=== PATIENT | female | born 1955 | race Caucasian/White ===

== ENCOUNTER 2018-05-10 22:14 | Emergency (ER) | payer OTHER ==
[2018-05-10 22:29] VITALS: BP 110/74; PULSE 100; O2SAT 97
--- NOTE | 2018-05-10 22:46 | ERPHSYRPT ---
- History of Present Illness Time Seen by Provider: 05/10/18 22:30 Source: patient Exam Limitations: no limitations Patient Subjective Stated Complaint: pt reports severe dry eyes related to her sjogren's syndrome. reports she got two different eye drops from her PCP but they are not working. states "i cannot live like this" states "its like i have been in a sand storm" also reports yellow drainage from both eyes. pt reports decrease in vision. Triage Nursing Assessment: pt is aox3, pupils perrl, bilat eyes are red and mucous membranes appear dry. pt afebrile, radial pulses strong and equal. pt is photophobic. Physician History: 62 y/o female with history of Sjogren's Syndrome and Primary Biliary Cirrhosis comes to the ER with complaints of bilateral eye pain, blurry vision and dry eyes for the past 5 days. Pt states that she was prescribed Restasis and an antibiotic ointment with no relief. Pt states that the pain is unbearable and can not take the pain anymore. Timing/Duration: today, day(s) Location: bilateral eyes Severity: severe Apparent Injury: no Associated Symptoms: pain, decreased vision, blurred vision Visual Assistive Devices: None Chemical Exposure: No Trauma: No Welding Arc/Tanning Bed Exposure: No Allergies/Adverse Reactions: Latex, Natural Rubber Allergy (Mild, Verified 05/25/13 18:05) meperidine HCl [From Demerol] Allergy (Mild, Verified 05/25/13 18:05) can not urinate tetracycline [Tetracycline] Allergy (Unknown, Verified 05/25/13 18:05) ringing in ears Home Medications: Fluoxetine HCl 20 mg [Prozac 20 MG] 20 mg PO DAILY 05/16/13 [History] Omeprazole [Prilosec] 40 mg PO DAILY 05/16/13 [History] Hx Tetanus, Diphtheria Vaccination/Date Given: Yes Hx Influenza Vaccination/Date Given: No Hx Pneumococcal Vaccination/Date Given: No Immunizations Up to Date: Yes - Review of Systems Constitutional: No Fever, No Chills Eyes: Eye Pain, Eye Redness, Vision Changes Ears, Nose, & Throat: No Symptoms Respiratory: No Cough, No Dyspnea Cardiac: No Chest Pain, No Edema, No Syncope Abdominal/Gastrointestinal: No Abdominal Pain, No Nausea, No Vomiting, No Diarrhea Genitourinary Symptoms: No Dysuria Musculoskeletal: No Back Pain, No Neck Pain Skin: No Rash Neurological: No Dizziness, No Focal Weakness, No Sensory Changes Psychological: No Symptoms Endocrine: No Symptoms All Other Systems: Reviewed and Negative - Past Medical History Pertinent Past Medical History: Yes Neurological History: No Pertinent History ENT History: No Pertinent History Cardiac History: No Pertinent History Respiratory History: No Pertinent History Endocrine Medical History: Hypoglycemia Musculoskeletal History: No Pertinent History GI Medical History: Other History: No Pertinent History Psycho-Social History: Anxiety Female Reproductive Disorders: No Pertinent History Other Medical History: ESOPHGITIS, stage 3 primary billiary cirrossis, Sjogren' s Syndrome - Past Surgical History Past Surgical History: Yes Neuro Surgical History: No Pertinent History Cardiac: No Pertinent History Respiratory: No Pertinent History Gastrointestinal: Cholecystectomy Genitourinary: No Pertinent History Musculoskeletal: No Pertinent History Female Surgical History: Other Other Surgical History: BREAST REDUCTION - Social History Smoking Status: Never smoker How long have you smoked: 30 yrs Exposure to second hand smoke: No Drug Use: none Patient Lives Alone: No - Female History Hx Now: No - Nursing Vital Signs Nursing Vital Signs: Initial Vital Signs Temperature 98.6 F 05/10/18 22:15 Pulse Rate 98 H 05/10/18 22:15 Respiratory Rate 20 05/10/18 22:15 Blood Pressure 110/74 05/10/18 22:15 O2 Sat by Pulse Oximetry 98 05/10/18 22:15 Pain Scale Pain Intensity 8 - Physical Exam General Appearance: mild distress Vision Acuity Degree Evaluation Phase: Corrected Vision Acuity Right Eye: 20/40 Vision Acuity Left Eye: 20/40 Eye Exam: bilateral eye: erythema, exudate, vision changes Ears, Nose, Throat Exam: normal ENT inspection Neck Exam: normal inspection, non-tender Respiratory Exam: normal breath sounds, lungs clear Cardiovascular Exam: regular rate/rhythm, normal heart sounds Gastrointestinal Exam: soft, normal bowel sounds Extremity Exam: normal inspection, normal range of motion Neurologic: alert, oriented x 3, cooperative, 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 Skin Exam: normal color, warm, dry SpO2: 97 Oxygen Delivery: Room Air - Course Nursing assessment & vital signs reviewed: Yes Ordered Tests: Medication Summary Generic Name Dose Route Start Last Admin Trade Name Freq PRN Reason Stop Dose Admin Artificial Tears 15 ml 05/11/18 23:05 05/10/18 23:34 Artificial Tears 15 Ml OP 05/11/18 23:06 15 ml ONCE ONE Administration Discontinued Medications Generic Name Dose Route Start Last Admin Trade Name Malcolm PRN Reason Stop Dose Admin Artificial Tears Confirm 05/10/18 23:27 Artificial Tears 15 Ml Administered 05/10/18 23:28 Dose 15 ml OP .STK-MED ONE Cyclopentolate HCl 2 ml 05/10/18 23:04 05/10/18 23:29 Cyclogyl 1% Eye Drops OP 05/10/18 23:05 2 ml STAT ONE Administration Cyclopentolate HCl Confirm 05/10/18 23:18 Cyclogyl 1% Eye Drops Administered 05/10/18 23:19 Dose 2 ml OP .STK-MED ONE - Progress Progress: improved Progress Note: 05/11/18 00:[address] Resendiz, opthalmology and he recommends that the patient use cyclophentolate and artificial tears. Pt will F/U with her opthalmologist in the morning. - Departure Time of Disposition: 00:05 Departure Disposition: Home Clinical Impression: Dry eyes Condition: Stable Critical Care Time: No Referrals: DANILO MCKINNEY [Primary Care Provider] - Instructions: Dry Eye Additional Instructions: Follow up with your opthalmologist in the morning. Take the cyclophenotolate 3 times daily and use the artificial tears every hour during waking hours. Prescriptions: Cyclopentolate HCl [Cyclogyl] 2 ml OP TID #1 drops Dextran 70/Hypromellose [Artificial Tears Drops] 15 ml OP PER HOUR #1 drops
[2018-05-10] MEDS ORDERED: Cyclogyl 1% EYE DROPS OP ONE ×2 (23:04→23:18)
[2018-05-10] MEDS ORDERED: Artificial Tears 15 ML OP ONE (23:27)
[2018-05-11] MEDS ORDERED: Artificial Tears 15 ML OP ONE (23:05)
== END 2018-05-11 00:13 | disposition home or self-care (01) ==
LOC: ED 22:14
DX: H57.8 Other specified disorders of eye and adnexa (principal); H57.13 Ocular pain, bilateral
CPT/HCPCS: 99283; A9270-GY

== ENCOUNTER 2018-10-01 13:30 | Emergency (ER) | payer MEDICARE, OTHER ==
[2018-10-01] MEDS ORDERED: Sodium Chloride 0.9% 1000 ML 1,000 ML IV STA (13:59)
--- NOTE | 2018-10-01 14:05 | ERPHSYRPT ---
- History of Present Illness Time Seen by Provider: 10/01/18 13:54 Historian: patient Exam Limitations: no limitations Patient Subjective Stated Complaint: has primary billiary colongitis and thinks that her liver has flipped over Triage Nursing Assessment: Pt reports that she has primary billiary colongitis and thinks that her liver has flipped over, she was having some sharp pains and then she saw something "flip" over inside her, vitals wnl, pain with palpatation , denies pain otherwise, no other issues at this time Physician History: 62-year-old white female arrives with complaint of right upper quadrant pain she states that this morning she felt pain in the right upper quadrant noted distention of her right upper quadrant she states she wonders if her liver flipped over. Patient states she has some mild right upper quadrant tenderness at this time she denies any nausea vomiting. She does state that she has been having bilateral flank pain for last few days right worse than left. Past medical history includes hypoglycemia, anxiety, esophagitis, stage III biliary cirrhosis, sjogren's syndrome Past surgical history includes cholecystectomy and breast reduction.. Social history patient denies tobacco alcohol or illicit drug use. Timing/Duration: today Activities at Onset: none Quality: cramping Abdominal Pain Onset Location: RUQ, flank (right flank) Pain Radiation: RUQ, flank (right flank) Severity of Pain-Max: moderate Severity of Pain-Current: mild Modifying Factors: Improves With: nothing Associated Symptoms: back (right bilateral flank pain for several days), No chest pain, No diaphoresis, No diarrhea, No fever/chills, No fatigue, No headache, No heartburn, No loss of appetite, No nausea, No neck pain, No shortness of breath, No syncope, No vomiting, No weakness Previous symptoms: no prior history Allergies/Adverse Reactions: Latex, Natural Rubber Allergy (Mild, Verified 10/01/18 13:50) meperidine HCl [From Demerol] Allergy (Mild, Verified 10/01/18 13:50) can not urinate tetracycline [Tetracycline] Allergy (Unknown, Verified 10/01/18 13:50) ringing in ears Home Medications: Omeprazole [Prilosec] 40 mg PO BID 05/16/13 [History] Dicyclomine HCl 20 mg [Bentyl 20 mg] 10 mg PO DAILY 10/01/18 [History] Hydroxyzine HCl 25 mg [Atarax 25 mg] 25 mg PO Q6H PRN 10/01/18 [History] Levothyroxine Sodium 25 Mcg [Synthroid 25 Mcg] 25 mcg PO DAILY 10/01/18 [ History] Ondansetron ODT 4 MG [Zofran Odt 4 mg] 8 mg PO STAT 10/01/18 [History] Ursodiol 300 mg [Actigall 300MG] 3 cap PO DAILY 10/01/18 [History] Venlafaxine HCl [Venlafaxine HCl ER] 375 mg PO DAILY 10/01/18 [History] Hx Tetanus, Diphtheria Vaccination/Date Given: Yes Hx Influenza Vaccination/Date Given: No Hx Pneumococcal Vaccination/Date Given: No - Review of Systems Constitutional: No Fever, No Chills Eyes: No Symptoms Ears, Nose, & Throat: No Symptoms Respiratory: No Cough, No Dyspnea Cardiac: No Chest Pain, No Edema, No Syncope Abdominal/Gastrointestinal: Abdominal Pain (right upper quadrant pain), No Nausea, No Vomiting, No Diarrhea, No Constipation, No Hematemesis, No Hematochezia, No Melena, No Dysphagia, No Appetite Changes Genitourinary Symptoms: Flank Pain (bilateral flank pain for few days, right greater than left), No Dysuria, No Frequency, No Hematuria, No Hesitancy, No Incontinence, No Urgency, No Urinary Retention Musculoskeletal: Back Pain, No Neck Pain Skin: No Rash Neurological: No Dizziness, No Focal Weakness, No Sensory Changes Psychological: No Symptoms Endocrine: No Symptoms All Other Systems: Reviewed and Negative - Past Medical History Pertinent Past Medical History: Yes Neurological History: No Pertinent History ENT History: No Pertinent History Cardiac History: No Pertinent History Respiratory History: No Pertinent History Endocrine Medical History: Hypoglycemia Musculoskeletal History: No Pertinent History GI Medical History: Other History: No Pertinent History Psycho-Social History: Anxiety Female Reproductive Disorders: No Pertinent History Other Medical History: ESOPHGITIS, stage 3 primary billiary cirrossis, Sjogren' s Syndrome, raynauds - Past Surgical History Past Surgical History: Yes Neuro Surgical History: No Pertinent History Cardiac: No Pertinent History Respiratory: No Pertinent History Gastrointestinal: Cholecystectomy Genitourinary: No Pertinent History Musculoskeletal: No Pertinent History Female Surgical History: Other Other Surgical History: BREAST REDUCTION - Social History Smoking Status: Former smoker How long have you smoked: 30 yrs Exposure to second hand smoke: No Drug Use: none Patient Lives Alone: No - Female History Hx Now: No - Nursing Vital Signs Nursing Vital Signs: Initial Vital Signs Temperature 98.5 F 10/01/18 13:39 Pulse Rate 98 H 10/01/18 13:39 Blood Pressure 124/88 10/01/18 13:39 O2 Sat by Pulse Oximetry 97 10/01/18 13:39 Pain Scale Pain Intensity 0 - Physical Exam General Appearance: mild distress Eye Exam: PERRL/EOMI, eyes nml inspection Ears, Nose, Throat Exam: normal ENT inspection, pharynx normal, moist mucous membranes Neck Exam: normal inspection, non-tender, supple, full range of motion Respiratory Exam: normal breath sounds, lungs clear, No respiratory distress Cardiovascular Exam: regular rate/rhythm, normal heart sounds Gastrointestinal/Abdomen Exam: soft, tenderness (right upper quadrant tenderness ), No mass Back Exam: normal inspection, normal range of motion, No CVA tenderness, No vertebral tenderness Extremity Exam: normal inspection, normal range of motion, pelvis stable Neurologic Exam: alert, oriented x 3, cooperative, 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 tested, normal mood/affect, nml cerebellar function, sensation nml, No motor deficits Skin Exam: normal color, warm, dry SpO2 Interpretation: normal (97%\\) SpO2: 97 Oxygen Delivery: Room Air - Course Nursing assessment & vital signs reviewed: Yes - Radiology Exams Abdomen X-ray Interpretation: Interpreted by me, Negative (non obstructive bowel gas pattern already .no free air lungs no acute disease process noted), No Fracture Ordered Tests: Active Orders 24 hr Category Date Time Status IV Insertion STAT Care 10/01/18 13:59 Active OBSTR/ACUTE ABDOMEN SERIES Stat Exams 10/01/18 15:17 Completed AMYLASE Stat Lab 10/01/18 14:10 Completed CBC W DIFF Stat Lab 10/01/18 14:10 Completed CMP Stat Lab 10/01/18 14:10 Completed LIPASE Stat Lab 10/01/18 14:10 Completed UA W/RFX UR CULTURE Stat Lab 10/01/18 Completed Medication Summary Discontinued Medications Generic Name Dose Route Start Last Admin Trade Name Freq PRN Reason Stop Dose Admin Sodium Chloride 1,000 mls @ 999 mls/hr 10/01/18 13:59 10/01/18 14:17 Sodium Chloride 0.9% 1000 Ml IV 10/01/18 14:59 999 mls/hr .Q1H1M STA Administration Sodium Chloride Confirm 10/01/18 14:15 Sodium Chloride 0.9% 1000 Ml Administered 10/01/18 14:16 Dose 1,000 mls @ ud .ROUTE .STK-MED ONE Lab/Rad Data: Laboratory Result Diagrams 10/01/18 14:10 10/01/18 14:10 Laboratory Results 10/01/18 10/01/18 10/01/18 Range/Units Unknown 14:10 14:10 WBC 4.9 (4.0-10.5) K/mm3 RBC 4.66 (4.1-5.4) M/mm3 Hgb 14.3 (12.0-16.0) gm/dl Hct 43.6 (35-47) % MCV 93.6 (78-100) fl MCH 30.7 (26-32) pg MCHC 32.8 (32-36) g/dl RDW 14.6 H (11.5-14.0) % Plt Count 223 (150-450) K/mm3 MPV 9.9 H (6-9.5) fl Gran % 66.0 (36.0-66.0) % Eos # (Auto) 0.01 (0-0.5) Absolute Lymphs (auto) 1.15 (1.0-4.6) Absolute Monos (auto) 0.50 (0.0-1.3) Lymphocytes % 23.4 L (24.0-44.0) % Monocytes % 10.2 (0.0-12.0) % Eosinophils % 0.2 (0.00-5.0) % Basophils % 0.2 (0.0-0.4) % Absolute Granulocytes 3.25 (1.4-6.9) Basophils # 0.01 (0-0.4) Sodium 138 (137-145) mmol/L Potassium 3.5 (3.5-5.1) mmol/L Chloride 101 (98-107) mmol/L Carbon Dioxide 27 (22-30) mmol/L Anion Gap 13.3 (5-15) MEQ/L BUN 15 (7-17) mg/dL Creatinine 0.86 (0.52-1.04) mg/dL Estimated GFR > 60.0 ML/MIN Glucose 111 H (74-106) mg/dL Calcium 9.1 (8.4-10.2) mg/dL Total Bilirubin 0.40 (0.2-1.3) mg/dL AST 34 (14-36) U/L ALT 21 (0-35) U/L Alkaline Phosphatase 178 H (38-126) U/L Serum Total Protein 7.7 (6.3-8.2) g/dL Albumin 4.3 (3.5-5.0) g/dL Amylase 98 (30-110) U/L Lipase 150 (23-300) U/L Urine Color STRAW (YELLOW) Urine Appearance CLEAR (CLEAR) Urine pH 6.0 (5-6) Ur Specific [place] 1.005 (1.005-1.025) Urine Protein NEGATIVE (Negative) Urine Ketones NEGATIVE (NEGATIVE) Urine Blood NEGATIVE (0-5) [place]/ul Urine Nitrite NEGATIVE (NEGATIVE) Urine Bilirubin NEGATIVE (NEGATIVE) Urine Urobilinogen NEGATIVE (0-1) mg/dL Ur Leukocyte Esterase NEGATIVE (NEGATIVE) Urine WBC (Auto) NONE (0-5) /HPF Urine RBC (Auto) NONE (0-2) /HPF U Epithel Cells (Auto) NONE (FEW) /HPF Urine Bacteria (Auto) NONE (NEGATIVE) /HPF Urine Mucus (Auto) SLIGHT (NEGATIVE) /HPF Urine Culture Reflexed NO (NO) Urine Glucose NEGATIVE (NEGATIVE) mg/dL - Progress Progress: improved Progress Note: 10/01/18 16:50 This is a 62-year-old white female history of hypoglycemia, anxiety, esophagitis , stage III biliary cirrhosis, Sogren's syndrome, she arrives with complaint of right upper quadrant abdominal pain which began this morning she states that "I feel like my liver flipped over Patient did not have any nausea she states she has had pain in bilateral flanks for a couple of days right greater than left she denies any dysuria hematuria melena hematochezia. Patient appears to be uncomfortable on arrival she has some slight right upper quadrant tenderness bowel sounds are positive there is no rebound on examination of the abdomen there are no masses. Patient's urine is within normal limits chemistry is essentially normal with the suction of alkaline phosphatase at 178 . Total bilirubin is 0.4 amylase is 98 lipase 150 AST is 30 4SB GPT is 21 the remainder of the chemistry is normal with the exception of a glucose of 111 CBC White blood cell 4.9 hemoglobin 14.3 hematocrit 43.6 platelets are At 223 Patient's acute abdominal series Nonspecific abdominal bowel series, no obstruction no free air chest x-ray no acute disease process noted. Patient is given IV normal saline. She is in no acute distress at this time she states she feels "swollen in the right upper quadrant but is nontender when I palpate her abdomen. Patient does not want any pain medications I discussed the case with Dr. Baker. Will discharge patient's clear fluids 24-48 hours if abdominal pain follow-up with Dr. Baker if symptoms are getting worse or no better tomorrow. She is return for acute distress or for severe symptoms. - Departure Time of Disposition: 16:55 Departure Disposition: Home Clinical Impression: Right upper quadrant abdominal pain, history of biliary cirrhosis Condition: Fair Critical Care Time: No Referrals: DANILO BAKER [Primary Care Provider] - Additional Instructions: Return home. Plenty of fluids. Clear fluids only 24-48 hours if abdominal pain. Follow-up with Dr. Baker tomorrow if symptoms no better. Or if symptoms persist longer than 48 hours. Return for acute distress or for severe symptoms
[2018-10-01] MEDS ORDERED: Sodium Chloride 0.9% 1000 ML 1,000 ML ONE (14:15)
[2018-10-01 14:37] LABS: BASOPHIL % 0.2 % (0.0-0.4); Basophil (Absolute #) 0.01 (0-0.4); Eosinophil % 0.2 % (0.00-5.0); Eosinophil (Absolute #) 0.01 (0-0.5); Granulocyte Absolute (ANC) 3.25 (1.4-6.9); Hematocrit 43.6 % (35-47); Hemoglobin 14.3 gm/dl (12.0-16.0); Lymphocyte (Absolute #) 1.15 (1.0-4.6); Lymphocytes % 23.4 % (24.0-44.0); Mean Cell Volume 93.6 fl (78-100); Mean Corpuscular Hemoglobin 30.7 pg (26-32); Mean Corpuscular Hgb Concent. 32.8 g/dl (32-36); Mean Platelet Volume 9.9 fl (6-9.5); Monocytes % 10.2 % (0.0-12.0); Platelet Count 223 K/mm3 (150-450); Red Blood Count 4.66 M/mm3 (4.1-5.4); Red Cell Distribution Width 14.6 % (11.5-14.0); White Blood Count 4.9 K/mm3 (4.0-10.5)
[2018-10-01 15:06] LABS: ALBUMIN 4.3 g/dL (3.5-5.0); ALKALINE PHOSPHATASE 178 U/L (38-126); AMYLASE 98 U/L (30-110); ANION GAP 13.3 MEQ/L (5-15); BLOOD UREA NITROGEN 15 mg/dL (7-17); CHLORIDE 101 mmol/L (98-107); Calcium 9.1 mg/dL (8.4-10.2); Carbon Dioxide 27 mmol/L (22-30); Creatinine 1 0.86 mg/dL (0.52-1.04); Glucose 111 mg/dL (74-106); LIPASE 150 U/L (23-300); Potassium 3.5 mmol/L (3.5-5.1); SGOT/AST 34 U/L (14-36); SGPT/ALT 21 U/L (0-35); SODIUM 138 mmol/L (137-145); Total Protein 7.7 g/dL (6.3-8.2)
[2018-10-01 15:39] LABS: Appearance CLEAR (CLEAR); Bilirubin NEGATIVE (NEGATIVE); Blood NEGATIVE Ery/ul (0-5); Glucose NEGATIVE (NEGATIVE); Ketones NEGATIVE (NEGATIVE); Leukocyte Esterase NEGATIVE (NEGATIVE); Nitrite NEGATIVE (NEGATIVE); Protein,Urine Dip NEGATIVE (Negative); Specific Gravity 1.005 (1.005-1.025); Urobilinogen NEGATIVE mg/dL (0-1)
--- NOTE | 2018-10-01 16:29 | XRAY ---
Indication: Right upper quadrant abdominal pain. Comparison: May 25, 2013. 2 views of the abdomen now demonstrates mild diffuse scattered colonic fecal debris and cholecystectomy clips. Stable pelvic phleboliths. Solid organs unremarkable. Osseous structures intact with stable mild degenerative spondylosis and minimal double curvature scoliosis. Single PA chest demonstrates normal heart and lungs again with left hilar and left apical calcified granulomas. Bony thorax intact with mild degenerative changes. Impression: 1. Mild fecal stasis without obstruction. 2. Nonacute one view chest with chronic features.
[2018-10-01 18:03] VITALS: BP 124/87; PULSE 74; O2SAT 98
== END 2018-10-01 18:02 | disposition home or self-care (01) ==
LOC: ED 13:30
DX: R10.11 Right upper quadrant pain (principal); Z79.899 Other long term (current) drug therapy; Z87.19 Personal history of other diseases of the digestive system
CPT/HCPCS: 36000; 36415; 74022; 80053; 81001; 82150; 83690; 85025; 96360; 99284

== ENCOUNTER 2023-11-24 15:16 | Emergency (ER) | payer MEDICARE ==
--- NOTE | 2023-11-24 15:24 | ERPHSYRPT ---
- History of Present Illness Time Seen by Provider: 11/24/23 15:24 Historian: patient Exam Limitations: no limitations Physician History: This is a 68-year-old white female patient of Dr. Barcenas who presents to the emergency department with left lower quad abdominal pain that began at 3:00 this morning and has worsened throughout the day. Patient has a history of di verticulitis in the past. This pain is worse. There is also no passage of bloody stools as there was when she had an episode of diverticulitis. Patient did lose her son last week. Patient has had nausea but no vomiting. Patient has a history of gastroesophageal reflux disease, anxiety, hypothyroidism, stage III primary biliary cirrhosis, Sjogren's syndrome, Raynaud's and hypoglycemia. Patient denies chest pain. Patient denies shortness of breath. Patient does not want any pain medicine at this time. Activities at Onset: none ( She does not want any antiemetic medication at this time.) Quality: sharpness Abdominal Pain Onset Location: LLQ Pain Radiation: no radiation Severity of Pain-Max: moderate Severity of Pain-Current: moderate Associated Symptoms: loss of appetite, No diarrhea, No fever/chills, No yen rtness of breath Previous symptoms: no prior history Allergies/Adverse Reactions: Latex, Natural Rubber Allergy (Mild, Verified 11/24/23 15:54) Rash meperidine HCl [From Demerol] Allergy (Mild, Verified 11/24/23 15:54) can not urinate tetracycline [Tetracycline] Allergy (Unknown, Verified 11/24/23 15:54) ringing in ears lifitegrast [From Xiidra] Allergy (Verified 11/24/23 15:54) Home Medications: Omeprazole [Prilosec] 40 mg PO BID 05/16/13 [History] Hydroxyzine HCl 25 mg [Atarax 25 mg] 50 mg PO Q6H PRN 10/01/18 [History] Levothyroxine Sodium 25 Mcg [Synthroid 25 Mcg] 50 mcg PO DAILY 10/01/18 [History] Ursodiol 300 mg [Actigall 300MG] 500 mg PO BID 10/01/18 [History] Calcium Carbonate/Vitamin D3 [Caltrate 600 + D Tablet] 1 each PO BID 07/26/21 [History] Obeticholic Acid [Ocaliva] 10 mg PO DAILY 07/26/21 [History] Carboxymethylcellulose Sodium [Refresh Plus] 1 each OP UD 11/24/23 [History] Duloxetine HCl [Cymbalta] 60 mg PO DAILY 11/24/23 [History] Hx Tetanus, Diphtheria Vaccination/Date Given: Yes Hx Influenza Vaccination/Date Given: No Hx Pneumococcal Vaccination/Date Given: No Travel Risk - International Travel Have you traveled outside of the country in past 3 weeks: No - Coronavirus Screening Are you exhibiting any of the following symptoms?: No Close contact with a COVID-19 positive Pt in past 14-21 Days: No - Review of Systems Constitutional: No Symptoms Eyes: No Symptoms Ears, Nose, & Throat: No Symptoms Respiratory: No Symptoms Cardiac: No Symptoms Abdominal/Gastrointestinal: Abdominal Pain Genitourinary Symptoms: No Symptoms (Left lower quadrant) Musculoskeletal: No Symptoms Skin: No Symptoms Neurological: No Symptoms Psychological: No Symptoms Endocrine: No Symptoms Hematologic/Lymphatic: No Symptoms Immunological/Allergic: No Symptoms All Other Systems: Reviewed and Negative - Past Medical History Pertinent Past Medical History: Yes Neurological History: No Pertinent History ENT History: No Pertinent History Cardiac History: No Pertinent History Respiratory History: No Pertinent History Endocrine Medical History: Hypoglycemia Musculoskeletal History: No Pertinent History GI Medical History: Other History: No Pertinent History Psycho-Social History: Anxiety Female Reproductive Disorders: No Pertinent History Other Medical History: ESOPHGITIS, stage 3 primary billiary cirrossis, Sjogren's Syndrome, raynauds - Past Surgical History Past Surgical History: Yes Neuro Surgical History: No Pertinent History Cardiac: No Pertinent History Respiratory: No Pertinent History Gastrointestinal: Cholecystectomy Genitourinary: No Pertinent History Musculoskeletal: No Pertinent History Female Surgical History: Other Other Surgical History: BREAST REDUCTION - Social History Smoking Status: Former smoker How long have you smoked: 30 yrs Exposure to second hand smoke: No Drug Use: none Patient Lives Alone: No - Nursing Vital Signs Nursing Vital Signs: Initial Vital Signs Temperature 97.9 F 11/24/23 15:41 Pulse Rate 76 11/24/23 15:41 Blood Pressure 130/78 11/24/23 15:41 O2 Sat by Pulse Oximetry 98 11/24/23 15:41 Pain Scale Pain Intensity 10 - Physical Exam General Appearance: no apparent distress, alert, anxiety Eye Exam: PERRL/EOMI, eyes nml inspection Ears, Nose, Throat Exam: normal ENT inspection, moist mucous membranes Neck Exam: normal inspection, non-tender, supple, full range of motion Respiratory Exam: normal breath sounds, lungs clear, airway intact, No chest tenderness, No respiratory distress Cardiovascular Exam: regular rate/rhythm, normal heart sounds, normal peripheral pulses Gastrointestinal/Abdomen Exam: soft, normal bowel sounds, tenderness (Left lower quadrant), guarding (Left lower quadrant to palpation), rebound (Left lower quadrant on palpation) Pelvic Exam: not done Rectal Exam: not done Back Exam: normal inspection, normal range of motion, No CVA tenderness, No vertebral tenderness Extremity Exam: normal inspection, normal range of motion, pelvis stable Neurologic Exam: alert, oriented x 3, cooperative, grab hooker II-XII nml as tested, normal mood/affect, nml cerebellar function, nml station & gait, sensation nml Skin Exam: normal color, warm, dry Lymphatic Exam: No adenopathy SpO2 Interpretation: normal O2 Delivery: Room Air - Course Nursing assessment & vital signs reviewed: Yes Ordered Tests: Active Orders 24 hr Category Date Time Status IV Insertion STAT Care 11/24/23 16:04 Active ABDOMEN AND PELVIS W/0 CONTRAS [CT] Stat Exams 11/24/23 16:05 Taken AMYLASE Stat Lab 11/24/23 16:30 Completed CBC W DIFF Stat Lab 11/24/23 16:30 Completed CMP Stat Lab 11/24/23 16:30 Completed LIPASE Stat Lab 11/24/23 16:30 Completed UA W/RFX UR CULTURE Stat Lab 11/24/23 16:05 Ordered Medication Summary Discontinued Medications Generic Name Dose Route Start Last Admin Trade Name Malcolm PRN Reason Stop Dose Admin Sodium Chloride 1,000 mls @ 999 mls/hr 11/24/23 16:04 11/24/23 16:44 Sodium Chloride 0.9% 1000 Ml IV 11/24/23 17:04 999 mls/hr .Q1H1M STA Administration Sodium Chloride Confirm 11/24/23 16:43 Sodium Chloride 0.9% 1000 Ml Administered 11/24/23 16:44 Dose 1,000 mls @ ud .ROUTE .K-MED ONE Lab/Rad Data: Laboratory Result Diagrams 11/24/23 16:30 11/24/23 16:30 Laboratory Results 11/24/23 11/24/23 Range/Units 16:30 16:30 WBC 10.7 H (4.0-10.5) x10^3/uL RBC 4.22 (4.1-5.4) x10^6/uL Hgb 13.1 (12.0-16.0) g/dL Hct 40.5 (35-47) % MCV 96.0 (78-100) fL MCH 31.0 (26-32) pg MCHC 32.3 (32-36) g/dL RDW 13.2 (11.5-14.0) % Plt Count 248 (150-450) x10^3/uL MPV 9.6 (7.5-11.0) fL Gran % 76.9 H (36.0-66.0) % Immature Gran % (Auto) 0.2 (0.00-0.4) % Nucleat RBC Rel Count 0.0 (0.00-0.1) % Eos # (Auto) 0 (0-0.5) x10^3/uL Immature Gran # (Auto) 0.02 (0.00-0.03) x10^3u/L Absolute Lymphs (auto) 1.53 (1.0-4.6) x10^3/uL Absolute Monos (auto) 0.91 (0.0-1.3) x10^3/uL Absolute Nucleated RBC 0.00 (0.00-0.01) x10^3u/L Lymphocytes % 14.3 L (24.0-44.0) % Monocytes % 8.5 (0.0-12.0) % Eosinophils % 0.0 (0.00-5.0) % Basophils % 0.1 (0.0-0.4) % Absolute Granulocytes 8.20 H (1.4-6.9) x10^3/uL Basophils # 0.01 (0-0.4) x10^3/uL Sodium 135 L (137-145) mmol/L Potassium 3.5 (3.5-5.1) mmol/L Chloride 101 (98-107) mmol/L Carbon Dioxide 26 (22-30) mmol/L Anion Gap 11.5 (5-15) MEQ/L BUN 32 H (7-17) mg/dL Creatinine 0.91 (0.52-1.04) mg/dL Estimated GFR 68.7 ML/MIN Glucose 110 H (74-106) mg/dL Calcium 9.1 (8.4-10.2) mg/dL Total Bilirubin 1.70 H (0.2-1.3) mg/dL AST 32 (14-36) U/L ALT 17 (0-35) U/L Alkaline Phosphatase 129 H (38-126) U/L Serum Total Protein 7.8 (6.3-8.2) g/dL Albumin 4.3 (3.5-5.0) g/dL Amylase 63 (30-110) U/L Lipase 48 (23-300) U/L - Progress Progress: improved, pain not gone completely, re-examined Progress Note: 11/24/23 16:30 This patient's medical issue is 1 of moderate complexity. The level of complexity in the workup performed is based on review of the patient's past medical history, review the patient's medication list, review the patient's drug allergy list, history present illness and physical findings on examination. The workup in this patient includes placement of intravenous line, infusion of normal saline solution, CBC, CMP, amylase, lipase, urinalysis and CT scan of the abdomen pelvis without contrast. 11/24/23 18:03 Interpreted the patient's laboratory data. Patient has very mildly elevated white count. No other laboratory data results that suggest acute or emergent findings. CT scan of the abdomen pelvis was interpreted by the radiologist and I reviewed the impression. There is a new finding of mild diverticulitis of the descending colon without complications. Counseled pt/family regarding: lab results, diagnosis, need for follow-up, rad results Medical Desision Making - Independent Historian Additional History obtained from: Family - Diagnostic Testing Diagnostic test were ordered, analyzed, and reviewed by me: Yes Radiological Interpretation: Reviewed by me, Teleradiologist Report - Risk of complications The pt has a mod risk of morbidity or mortality based on: Need for prescription drug management - Departure Departure Disposition: Home Clinical Impression: Diverticulitis of descending colon Condition: Stable Critical Care Time: No Referrals: MADHURI BARCENAS DO [Primary Care Provider] - Follow up/PCP as directed Additional Instructions: Drink plenty of clear liquids. Use Tylenol for pain control. Take your antibiotics as prescribed. Prescriptions: Ciprofloxacin [Cipro 500 MG] 500 mg PO BID #14 tablet Metronidazole 500 mg [Flagyl 500 MG] 500 mg PO TID #21 tablet
[2023-11-24 15:53] VITALS: TEMP 97.9
[2023-11-24] MEDS ORDERED: Sodium Chloride 0.9% 1000 ML 1,000 ML IV STA (16:04)
[2023-11-24] MEDS ORDERED: Sodium Chloride 0.9% 1000 ML 1,000 ML ONE (16:43)
[2023-11-24 16:53] LABS: BASOPHIL % 0.1 % (0.0-0.4); Basophil (Absolute #) 0.01 x10^3/uL (0-0.4); Eosinophil (Absolute #) 0 x10^3/uL (0-0.5); Hematocrit 40.5 % (35-47); Hemoglobin 13.1 g/dL (12.0-16.0); IMMATURE GRAN # 0.02 x10^3u/L (0.00-0.03); IMMATURE GRAN % 0.2 % (0.00-0.4); Lymphocyte (Absolute #) 1.53 x10^3/uL (1.0-4.6); Lymphocytes % 14.3 % (24.0-44.0); Mean Corpuscular Hgb Concent. 32.3 g/dL (32-36); Mean Platelet Volume 9.6 fL (7.5-11.0); Monocyte (Absolute #) 0.91 x10^3/uL (0.0-1.3); Monocytes % 8.5 % (0.0-12.0); Neutrophil % 76.9 % (36.0-66.0); Platelet Count 248 x10^3/uL (150-450); Red Blood Count 4.22 x10^6/uL (4.1-5.4); Red Cell Distribution Width 13.2 % (11.5-14.0); White Blood Count 10.7 x10^3/uL (4.0-10.5)
[2023-11-24 17:07] LABS: ALBUMIN 4.3 g/dL (3.5-5.0); ANION GAP 11.5 MEQ/L (5-15); BILIRUBIN,TOTAL 1.7 mg/dL (0.2-1.3); Calcium 9.1 mg/dL (8.4-10.2); Creatinine 1 0.91 mg/dL (0.52-1.04); EST GLOMERULAR FILTRATION RATE 68.7 ML/MIN; Potassium 3.5 mmol/L (3.5-5.1); Total Protein 7.8 g/dL (6.3-8.2)
[2023-11-24] MEDS ORDERED: Flagyl 500 MG PO ONE (18:06)
[2023-11-24] MEDS ORDERED: TYLENOL 325 MG PO ONE (18:06)
[2023-11-24] MEDS ORDERED: Levofloxacin 500 MG Tablet PO ONE (18:06)
[2023-11-24] MEDS ORDERED: Levofloxacin 500 MG Tablet ONE (18:15)
[2023-11-24] MEDS ORDERED: TYLENOL 325 MG ONE (18:15)
[2023-11-24] MEDS ORDERED: Flagyl 500 MG ONE (18:16)
[2023-11-24 19:35] VITALS: BP 119/69; PULSE 72; RESP 16; O2SAT 97
--- NOTE | 2023-11-25 08:42 | XRAY ---
Indication: Left lower quadrant pain. Nausea. History diverticulitis. Multiple contiguous axial images obtained through the abdomen and pelvis without contrast. Comparison: May 26, 2013 Lung bases demonstrates minimal dependent atelectasis. No infiltrate or effusion. Heart not enlarged. Stable small hiatal hernia. Noncontrasted stomach and bowel loops nonobstructed. Descending colon demonstrates new mild circumferential wall thickening with stranding and a few diverticuli favoring mild diverticulitis. Interval cholecystectomy. No free fluid/air. Remaining liver, pancreas, spleen, adrenal glands, kidneys, ureters, bladder, and uterus are unremarkable for noncontrast exam. Again mild scattered aortoiliac calcifications without AAA. Osseous structures intact again with osteopenia, mild levoscoliosis centered at L4, and mild degenerative changes throughout lumbar spine. Impression: 1. New CT features favoring mild descending diverticulitis without complications. 2. Again chronic findings including hiatal hernia, arteriosclerotic disease, and chronic bony findings.
== END 2023-11-24 19:37 | disposition home or self-care (01) ==
LOC: ED 15:16
DX: K57.32 Diverticulitis of large intestine without perforation or abscess without bleeding (principal); R10.32 Left lower quadrant pain; R11.0 Nausea; K74.3 Primary biliary cirrhosis; Z79.899 Other long term (current) drug therapy
CPT/HCPCS: 36000; 36415; 74176; 80053; 82150; 83690; 85025; 96360; 96361; 99284; A9270-GY